=== PATIENT | male | born 1930 | race Caucasian/White ===

== ENCOUNTER 2017-05-23 15:09 | Emergency (ER) | payer OTHER ==
[~2017-05-23] VITALS: Ht 175.3 cm; Wt 63.5 kg
[2017-05-23 15:10] VITALS: BP 136/72; PULSE 65; RESP 16; TEMP 98.5; O2SAT 99
[2017-05-23] MEDS ORDERED: AMAR2TAB PO (15:46)
[2017-05-23] MEDS ORDERED: TRAD5TAB PO (15:47)
[2017-05-23] MEDS ORDERED: LOSA50TA PO (15:47)
--- NOTE | 2017-05-23 16:06 | RADRPT ---
EXAM DATE/TIME: 05/23/2017 15:59 [facility] COMPARISON: No previous studies available for comparison. INDICATIONS : Cold and flu symptoms. MEDICAL HISTORY : None. SURGICAL HISTORY : None. ENCOUNTER: Initial ACUITY: 1 day PAIN SCORE: 0/10 LOCATION: Bilateral chest FINDINGS: A single view of the chest demonstrates the lungs to be symmetrically aerated without evidence of mas s, infiltrate or effusion. The cardiomediastinal contours are unremarkable. Osseous structures are intact. CONCLUSION: Normal examination for a patient of this age. Eugenio Howell MD on May 23, 2017 at 16:03 Board Certified Radiologist. This report was verified electronically.
--- NOTE | 2017-05-23 16:09 | PD ---
HPI Chief Complaint: Cold / Flu Symptoms Time Seen by Provider: 15:37 Travel History International Travel<30 days: No Contact w/Intl Traveler<30days: [place] Traveled to: ARRIVED FROM [place] IN MARCH 2018 Traveled to known affect area: No History of Present Illness HPI 86-year-old male that presents to the ED for evaluation of cold-like symptoms and chest discomfort. Per patient she's had this for about 3 days now. Patient does have sick family at home. He negative which of this year. Has a history of ACS, high blood pressure and diabetes. History of asthma but denies any shortness of breath at this time. History of Alzheimer's. Most of the history is obtained from family who is in bedside. Patient is only oriented to himself. Patient himself denies any complaints blood per family his been complaining of shortness of breath and cough as well as some chest discomfort when he coughs. Per family looks like he is choking sometimes when he coughs. Per family his been a little more confused than usual but no other behavioral issues. No agitation. No lethargy. His been eating and drinking okay. No bowel movements or urinary issues. No injuries. No falls. No allergies to medication. Has not seen anybody for this. PFSH Past Medical History Alzheimer's Disease: Yes Cardiac Catheterization: Yes Cardiovascular Problems: Yes ([place]) Cerebrovascular Accident: Yes (CVA) Diabetes: Yes Patient Takes Glucophage: Yes Hypertension: Yes Social History Alcohol Use: No Tobacco Use: No Substance Use: No Allergies-Medications (Allergen,Severity, Reaction): Coded Allergies: No Known Allergies (Unverified , 05/23/17) Reported Meds & Prescriptions Reported Meds & Active Scripts Active Reported Losartan (Losartan Potassium) 50 Mg Tab 50 Mg PO DAILY Tradjenta (Linagliptin) 5 Mg Tab 5 Mg PO DAILY Amaryl (Glimepiride) 2 Mg Tab 2 Mg PO DAILY Take with breakfast or first main meal Review of Systems Except as stated in HPI: all other systems reviewed are Neg Physical Exam Narrative GENERAL: Well-nourished, well-developed patient in no apparent distress. SKIN: Warm and dry. HEAD: Atraumatic. Normocephalic. EYES: Pupils equal and round reactive to light and accommodation. No scleral icterus. No injection or drainage. ENT: No nasal bleeding or discharge. Mucous membranes pink and moist. TMs are clear with no sign of infection or perforation. No mastoid tenderness. Ear canals are intact bilaterally. No lymphadenopathy. Nostril mucosa is red and moist with clear mucus noted. No sinus tenderness to palpation noted. Tonsils are not enlarged or swollen. No ulvua Deviation. Tongue is midline. NECK: Trachea midline. No JVD. No meningeal signs noted CARDIOVASCULAR: Regular rate and rhythm. RESPIRATORY: No accessory muscle use. Clear to auscultation. Breath sounds equal bilaterally. GASTROINTESTINAL: Abdomen soft, non-tender, nondistended. Hepatic and splenic margins not palpable. MUSCULOSKELETAL: Extremities without clubbing, cyanosis, or edema. No obvious deformities. NEUROLOGICAL: Awake and alert. No obvious cranial nerve deficits. Motor grossly within normal limits. Five out of 5 muscle strength in the arms and legs. Normal speech. PSYCHIATRIC: Appropriate mood and affect; insight and judgment normal. Data Data Last Documented VS Vital Signs Date Time Temp Pulse Resp B/P (MAP) Pulse Ox O2 Delivery O2 Flow Rate FiO2 05/23/17 16:12 98 Room Air 05/23/17 15:50 22 05/23/17 15:10 98.5 65 Orders Orders Electrocardiogram (05/23/17 15:45) Complete Blood Count With Diff (05/23/17 15:45) Basic Metabolic Panel (Bmp) (05/23/17 15:45) Ckmb (Isoenzyme) Profile (05/23/17 15:45) Troponin I (05/23/17 15:45) Blood Culture (05/23/17 15:45) Magnesium (Mg) (05/23/17 15:45) Influenzae A/B Antigen (05/23/17 15:45) Chest, Single Ap (05/23/17 15:45) Iv Access Insert/Monitor (05/23/17 15:45) Ecg Monitoring (05/23/17 15:45) Oximetry (05/23/17 15:45) CKMB (05/23/17 16:00) CKMB% (05/23/17 16:00) Labs Laboratory Tests Test 05/23/17 16:00 White Blood Count 9.3 TH/MM3 Red Blood Count 3.95 MIL/MM3 Hemoglobin 12.4 GM/DL Hematocrit 36.4 % Mean Corpuscular Volume 92.0 FL Mean Corpuscular Hemoglobin 31.5 PG Mean Corpuscular Hemoglobin Concent 34.2 % Red Cell Distribution Width 12.8 % Platelet Count 180 TH/MM3 Mean Platelet Volume 8.9 FL Neutrophils (%) (Auto) 47.5 % Lymphocytes (%) (Auto) 28.1 % Monocytes (%) (Auto) 8.0 % Eosinophils (%) (Auto) 15.3 % Basophils (%) (Auto) 1.1 % Neutrophils # (Auto) 4.4 TH/MM3 Lymphocytes # (Auto) 2.6 TH/MM3 Monocytes # (Auto) 0.7 TH/MM3 Eosinophils # (Auto) 1.4 TH/MM3 Basophils # (Auto) 0.1 TH/MM3 CBC Comment DIFF FINAL Differential Comment Blood Urea Nitrogen 31 MG/DL Creatinine 1.62 MG/DL Random Glucose 166 MG/DL Calcium Level 8.8 MG/DL Magnesium Level 2.6 MG/DL Sodium Level 138 MEQ/L Potassium Level 4.6 MEQ/L Chloride Level 102 MEQ/L Carbon Dioxide Level 30.4 MEQ/L Anion Gap 6 MEQ/L Estimat Glomerular Filtration Rate 41 ML/MIN Total Creatine Kinase 101 U/L Troponin I LESS THAN 0.02 NG/ML MDM Medical Decision Making Medical Screen Exam Complete: Yes Emergency Medical Condition: Yes Medical Record Reviewed: Yes Interpretation(s) Last Impressions Chest X-Ray 05/23/17 1545 Signed Impressions: Service Date/Time: Tuesday, May 23, 2017 15:59 - CONCLUSION: Normal examination for a patient of this age. Eugenio Howell MD CBC & BMP Diagram 05/23/17 16:00 Calcium Level 8.8, Magnesium Level 2.6 H Troponin and CK-MB negative. EKG shows sinus rhythm with no sign of acute ischemia or arrhythmia. Influenza was negative Differential Diagnosis Chest pain versus a typical chest pain versus bronchitis versus pneumonia versus influenza Narrative Course 86-year-old male that presents to the ED for evaluation of cold-like symptoms and chest discomfort. Patient was properly examined and was found to have signs and symptoms of URI with possible atypical chest pain. We'll do labs and imaging to rule out any sign of ACS or acute disease. Labs and imaging showed no sign of acute disease. This time this appears to be likely bronchitis. Will treat with antibiotics and cough medication. Patient and family agree with plan. Case discussed in my attending who agrees with plan. Patient will be discharged home with prescription for azithromycin and Tessalon Perles. Told to take OTC medicines as needed. Follow with PCP. See ED worsening symptoms. Diagnosis Primary Impression: Bronchitis Patient Instructions: General Instructions Additional Instructions: Motrin and Tylenol for pain and fever. You can use [id number] antihistamine as well as well as Mucinex as needed for runny nose and congestion. Cough drops for cough as needed. Drink plenty of fluids. Follow-up with PCP. See ED for worsening symptoms. Med/Other Pt SpecificInfo: Prescription(s) given Scripts Benzonatate (Tessalon Perles) 100 Mg Cap 100 MG PO TID Y for COUGH, #15 CAP 0 Refills Prov: Charles Kelly MD 05/23/17 Azithromycin (Azithromycin) 250 Mg Tab 250 MG PO DIRECTED for Infection, #6 TAB 0 Refills Take 2 tabs (500 mg) on day 1 then 1 tab daily x 4 days. Prov: Charles Kelly MD 05/23/17 Disposition: 01 DISCHARGE HOME Condition: Manuelito Mondragon May 23, 2017 16:09
[2017-05-23 16:12] VITALS: O2SAT 98
[2017-05-23 16:20] LABS: AUTOMATED NEUTROPHIL # 4.4 TH/MM3 (1.8-7.7); BASOPHIL # 0.1 TH/MM3 (0-0.2); BASOPHIL % 1.1 % (0.0-2.0); EOSINOPHIL # 1.4 TH/MM3 (0-0.4); EOSINOPHIL % 15.3 % (0.0-4.0); HEMATOCRIT 36.4 % (39.0-51.0); HEMOGLOBIN 12.4 GM/DL (13.0-17.0); LYMPH % 28.1 % (9.0-44.0); LYMPHOCYTE # 2.6 TH/MM3 (1.0-4.8); MEAN CORPUSCULAR HEMOGLOBIN 31.5 PG (27.0-34.0); MEAN CORPUSCULAR HGB CONC 34.2 % (32.0-36.0); MEAN PLATELET VOLUME 8.9 FL (7.0-11.0); MONOCYTE # 0.7 TH/MM3 (0-0.9); NEUT % 47.5 % (16.0-70.0); PLATELET COUNT 180 TH/MM3 (150-450); RED BLOOD COUNT 3.95 MIL/MM3 (4.50-5.90); RED CELL DISTRIBUTION WIDTH 12.8 % (11.6-17.2); WHITE BLOOD COUNT 9.3 TH/MM3 (4.0-11.0)
[2017-05-23 16:40] LABS: BICARBONATE 30.4 MEQ/L (21.0-32.0); BLOOD UREA NITROGEN 31 MG/DL (7-18); CALCIUM 8.8 MG/DL (8.5-10.1); CHLORIDE 102 MEQ/L (98-107); CREATININE 1.62 MG/DL (0.60-1.30); GLOMERULAR FILTRATION RATE 41 ML/MIN (>89); GLUCOSE,RANDOM 166 MG/DL (74-106); MAGNESIUM 2.6 MG/DL (1.5-2.5); SODIUM (NA) 138 MEQ/L (136-145)
[2017-05-23 16:56] LABS: TROPONIN I LESS THAN 0.02 NG/ML (0.02-0.05)
[2017-05-23] MEDS ORDERED: AZIT250T3 PO (17:03)
[2017-05-23] MEDS ORDERED: BENZ100 PO (17:03)
[2017-05-23 17:33] VITALS: BP 128/70; PULSE 66; RESP 16; O2SAT 97
--- NOTE | 2017-05-24 11:38 | EKG ---
Date Performed: 05/23/2017 Time Performed: 16:49:54 PTAGE: 86 years EKG: Sinus rhythm LOW QRS VOLTAGE IN PRECORDIAL LEADS NO PREVIOUS TRACING DOCTOR: Anson Avalos Interpretating Date/Time 05/24/2017 11:36:53
== END 2017-05-23 18:06 | disposition home or self-care (01) ==
LOC: NEPE 15:09
DX: J40 Bronchitis, not specified as acute or chronic (principal); E11.9 Type 2 diabetes mellitus without complications; I24.9 Acute ischemic heart disease, unspecified; I10 Essential (primary) hypertension; J45.909 Unspecified asthma, uncomplicated; G30.9 Alzheimer's disease, unspecified; F02.80 Dementia in other diseases classified elsewhere, unspecified severity, without behavioral disturbance, psychotic disturbance, mood disturbance, and anxiety; I25.2 Old myocardial infarction; Z86.73 Personal history of transient ischemic attack (TIA), and cerebral infarction without residual deficits; Z79.899 Other long term (current) drug therapy
CPT/HCPCS: 71045; 80048; 82550; 82552; 83735; 84484; 85025; 87040; 87804; 93005; 99285

== ENCOUNTER 2017-07-03 17:38 | Emergency (ER) | payer MEDICARE, OTHER ==
[~2017-07-03] VITALS: Ht 170.2 cm; Wt 67.0 kg
[~2017-07-03 17:38] MED LIST: AMAR2TAB PO; AZIT250T3 PO; BENZ100 PO; LOSA50TA PO; TRAD5TAB PO
[2017-07-03 17:47] VITALS: BP 138/69; PULSE 115; RESP 18; TEMP 97.8; O2SAT 100
--- NOTE | 2017-07-03 18:25 | RADRPT ---
EXAM DATE/TIME: 07/03/2017 18:11 [facility] COMPARISON: CHEST SINGLE AP, May 23, 2017, 15:59. INDICATIONS : Chest pain. MEDICAL HISTORY : Alzheimers. SURGICAL HISTORY : None. ENCOUNTER: Initial ACUITY: 1 day PAIN SCORE: 6/10 LOCATION: Bilateral chest FINDINGS: A single view of the chest demonstrates the lungs to be symmetrically aerated without evidence of mas s, infiltrate or effusion. The cardiomediastinal contours are unremarkable. Aortic calcifications ar e seen. Osseous structures are intact. CONCLUSION: No acute disease. Girish Montague MD on July 03, 2017 at 18:21 Board Certified Radiologist. This report was verified electronically.
[2017-07-03 19:06] LABS: AUTOMATED NEUTROPHIL # 9.9 TH/MM3 (1.8-7.7); BASOPHIL % 0.2 % (0.0-2.0); EOSINOPHIL # 0.9 TH/MM3 (0-0.4); EOSINOPHIL % 7.5 % (0.0-4.0); HEMATOCRIT 36.3 % (39.0-51.0); HEMOGLOBIN 12.8 GM/DL (13.0-17.0); LYMPH % 4.1 % (9.0-44.0); LYMPHOCYTE # 0.5 TH/MM3 (1.0-4.8); MEAN CELL VOLUME 92.8 FL (80.0-100.0); MEAN CORPUSCULAR HEMOGLOBIN 32.8 PG (27.0-34.0); MEAN CORPUSCULAR HGB CONC 35.4 % (32.0-36.0); MEAN PLATELET VOLUME 9.7 FL (7.0-11.0); MONO % 3.8 % (0.0-8.0); MONOCYTE # 0.5 TH/MM3 (0-0.9); NEUT % 84.4 % (16.0-70.0); PLATELET COUNT 172 TH/MM3 (150-450); RED BLOOD COUNT 3.91 MIL/MM3 (4.50-5.90); RED CELL DISTRIBUTION WIDTH 12.8 % (11.6-17.2); WHITE BLOOD COUNT 11.8 TH/MM3 (4.0-11.0)
[2017-07-03 19:20] LABS: BICARBONATE 28.2 MEQ/L (21.0-32.0); BLOOD UREA NITROGEN 27 MG/DL (7-18); CALCIUM 8.4 MG/DL (8.5-10.1); CHLORIDE 99 MEQ/L (98-107); CREATININE 1.76 MG/DL (0.60-1.30); GLOMERULAR FILTRATION RATE 37 ML/MIN (>89); GLUCOSE,RANDOM 300 MG/DL (74-106); SODIUM (NA) 136 MEQ/L (136-145)
[2017-07-03 19:25] LABS: TROPONIN I LESS THAN 0.02 NG/ML (0.02-0.05)
[2017-07-03 21:07] VITALS: BP 120/78; PULSE 88; RESP 18; O2SAT 99
--- NOTE | 2017-07-03 22:44 | PD ---
HPI Chief Complaint: Chest Pain Time Seen by Provider: 21:08 Travel History International Travel<30 days: No Contact w/Intl Traveler<30days: No Traveled to known affect area: No History of Present Illness HPI This patient is brought in by his son and daughter. He has significant dementia and cannot provide any history or review of systems. Apparently earlier in the day he had some central chest discomfort. He's been having a flare of GERD and had nausea and was bringing up a lot of saliva. He is currently asymptomatic. He has not had any chest pain in the 5 hours he's been here. Symptoms severity is mild. No alleviating factors. No exacerbating factors. PFSH Past Medical History Hx Anticoagulant Therapy: Yes (asa) Alzheimer's Disease: Yes Cardiac Catheterization: Yes Cardiovascular Problems: Yes ([place]) Cerebrovascular Accident: Yes (CVA) Diabetes: Yes Patient Takes Glucophage: No Hypertension: Yes Social History Alcohol Use: No Tobacco Use: No Substance Use: No Allergies-Medications (Allergen,Severity, Reaction): Coded Allergies: No Known Allergies (Unverified , 05/23/17) Reported Meds & Prescriptions Reported Meds & Active Scripts Active Tessalon Perles (Benzonatate) 100 Mg Cap 100 Mg PO TID PRN Azithromycin 250 Mg Tab 250 Mg PO DIRECTED Take 2 tabs (500 mg) on day 1 then 1 tab daily x 4 days. Reported Losartan (Losartan Potassium) 50 Mg Tab 50 Mg PO DAILY Tradjenta (Linagliptin) 5 Mg Tab 5 Mg PO DAILY Amaryl (Glimepiride) 2 Mg Tab 2 Mg PO DAILY Take with breakfast or first main meal Review of Systems General / Constitutional: No: Fever Eyes: No: Visual changes HENT: No: Headaches Cardiovascular: Positive: Chest Pain or Discomfort Respiratory: No: Shortness of Breath Gastrointestinal: No: Abdominal Pain Genitourinary: No: Dysuria Musculoskeletal: No: Pain Skin: No Rash Neurologic: No: Weakness Psychiatric: No: Depression Endocrine: No: Polydipsia Hematologic/Lymphatic: No: Easy Bruising Physical Exam Narrative GENERAL: Well-nourished, well-developed patient in no apparent distress. SKIN: Focused skin assessment reveals no rash and nodules. Skin is Warm and dry. HEAD: Atraumatic. Normocephalic. EYES: Pupils equal and round. No scleral icterus. No injection or drainage. ENT: No nasal bleeding or discharge. Mucous membranes pink and moist. NECK: Trachea midline. No JVD. CARDIOVASCULAR: Regular rate and rhythm. No murmur appreciated. RESPIRATORY: No accessory muscle use. Clear to auscultation. Breath sounds equal bilaterally. GASTROINTESTINAL: Abdomen soft, non-tender, nondistended. Hepatic and splenic margins not palpable. MUSCULOSKELETAL: No obvious deformities. No clubbing. No cyanosis. No edema. NEUROLOGICAL: Awake and alert. No obvious cranial nerve deficits. Motor grossly within normal limits. Normal speech. PSYCHIATRIC: Appropriate mood and affect; insight and judgment reduced from dementia . Data Data Last Documented VS Vital Signs Date Time Temp Pulse Resp B/P (MAP) Pulse Ox O2 Delivery O2 Flow Rate FiO2 07/03/17 21:07 88 18 120/78 (92) 99 Room Air 07/03/17 17:47 97.8 Orders Orders Electrocardiogram (07/03/17 17:50) Complete Blood Count With Diff (07/03/17 17:50) Basic Metabolic Panel (Bmp) (07/03/17 17:50) Ckmb (Isoenzyme) Profile (07/03/17 17:50) Troponin I (07/03/17 17:50) Chest, Single Ap (07/03/17 17:50) Insulin Human Regular Inj (Novolin R Inj (07/03/17 22:45) Labs Laboratory Tests Test 07/03/17 18:05 White Blood Count 11.8 TH/MM3 Red Blood Count 3.91 MIL/MM3 Hemoglobin 12.8 GM/DL Hematocrit 36.3 % Mean Corpuscular Volume 92.8 FL Mean Corpuscular Hemoglobin 32.8 PG Mean Corpuscular Hemoglobin Concent 35.4 % Red Cell Distribution Width 12.8 % Platelet Count 172 TH/MM3 Mean Platelet Volume 9.7 FL Neutrophils (%) (Auto) 84.4 % Lymphocytes (%) (Auto) 4.1 % Monocytes (%) (Auto) 3.8 % Eosinophils (%) (Auto) 7.5 % Basophils (%) (Auto) 0.2 % Neutrophils # (Auto) 9.9 TH/MM3 Lymphocytes # (Auto) 0.5 TH/MM3 Monocytes # (Auto) 0.5 TH/MM3 Eosinophils # (Auto) 0.9 TH/MM3 Basophils # (Auto) 0.0 TH/MM3 CBC Comment DIFF FINAL Differential Comment Blood Urea Nitrogen 27 MG/DL Creatinine 1.76 MG/DL Random Glucose 300 MG/DL Calcium Level 8.4 MG/DL Sodium Level 136 MEQ/L Potassium Level 4.4 MEQ/L Chloride Level 99 MEQ/L Carbon Dioxide Level 28.2 MEQ/L Anion Gap 9 MEQ/L Estimat Glomerular Filtration Rate 37 ML/MIN Total Creatine Kinase 66 U/L Troponin I LESS THAN 0.02 NG/ML MDM Medical Decision Making Medical Screen Exam Complete: Yes Emergency Medical Condition: Yes Medical Record Reviewed: Yes Differential Diagnosis GERD, CAD, angina Narrative Course I have reviewed the patient's electronic medical record. Etiology of his discomfort is unclear by history and physical. The patient has advanced dementia and cannot even remember his chest pain. I asked the family members how aggressively they wanted this evaluated. They wanted to make sure he was not having an acute heart attack. Neither his cardiac enzymes nor EKG support this. He's been asymptomatic for 5 hours and has a normal troponin Daughter reports that she wanted to take him home. His dementia is advanced and he is basically just lying in bed as his daily routine Don't think he warrants inpatient admission for aggressive cardiac evaluation and the family does not want this his blood sugar was 300 and he had mild renal insufficiency CBC normal CK normal His chest x-ray was normal If his blood sugar still 300 will give him 8 units subcutaneous regular insulin here were checking it now Diagnosis Primary Impression: Chest pain Qualified Codes: R07.9 - Chest pain, unspecified Additional Impressions: Hyperglycemia Alzheimer's dementia Qualified Codes: G30.9 - Alzheimer's disease, unspecified; F02.80 - Dementia in other diseases classified elsewhere without behavioral disturbance GERD (gastroesophageal reflux disease) Qualified Codes: K21.9 - Gastro-esophageal reflux disease without esophagitis Additional Instructions: The patient was advised to follow up with their physician and return if they worsen. Med/Other Pt SpecificInfo: Other Disposition: 01 DISCHARGE HOME Condition: Stable Craig Dominique MD Jul 03, 2017 22:44
[2017-07-03] MEDS ORDERED: INSULIN HUMAN REGULAR 1,000 UNITS/10 ML VIAL SQ ONE (22:45)
[2017-07-03] MEDS ORDERED: ZOFR4TAB PO (23:23)
--- NOTE | 2017-07-04 19:47 | EKG ---
Date Performed: 07/03/2017 Time Performed: 17:56:22 PTAGE: 86 years EKG: SINUS TACHYCARDIA LOW QRS VOLTAGE IN PRECORDIAL LEADS3 Since the previous tracing, no signi ficant change noted ABNORMAL RHYTHM ECG PREVIOUS TRACING : 05/23/2017 16.49 DOCTOR: Patrick Pepe Interpretating Date/Time 07/04/2017 19:45:43
== END 2017-07-03 23:35 | disposition home or self-care (01) ==
LOC: NEPD 17:38
DX: R07.9 Chest pain, unspecified (principal); E11.65 Type 2 diabetes mellitus with hyperglycemia; G30.9 Alzheimer's disease, unspecified; F02.80 Dementia in other diseases classified elsewhere, unspecified severity, without behavioral disturbance, psychotic disturbance, mood disturbance, and anxiety; K21.9 Gastro-esophageal reflux disease without esophagitis; I10 Essential (primary) hypertension; I25.2 Old myocardial infarction; Z86.73 Personal history of transient ischemic attack (TIA), and cerebral infarction without residual deficits; Z79.899 Other long term (current) drug therapy
CPT/HCPCS: 71045; 80048; 82550; 84484; 85025; 93005; 96372; 99285; J1815